=== PATIENT | female | born 1975 | race Asian ===

== ENCOUNTER 2017-05-17 12:28 | Emergency (ER) | payer MEDICAID ==
[~2017-05-17] VITALS: Ht 162.6 cm; Wt 61.2 kg
--- NOTE | 2017-05-17 13:23 | NUR ---
PATIENT'S NAME APPEARED IN THE SYSTEM AT 1323.
--- NOTE | 2017-05-17 13:36 | NUR ---
PT WALKED TO ROOM C/C LEFT HAND LACERATION AFTER TRYING TO OPEN A BOX WITH KNIFE. PT ALERT AND ORIENTED X 4 DENIES SI
[2017-05-17] MEDS ORDERED: LIDOCAINE 1%-EPI 1:100,000 20 ML VIAL ONE (13:43)
[2017-05-17] MEDS ORDERED: ACETAMINOPHEN ES 500 MG TABLET ONE (13:53)
[2017-05-17] MEDS ORDERED: TDAP [DIPH/PERTUSSIS/TET] 0.5 ML VIAL IM ONE ×2 (13:54→14:00)
[2017-05-17] MEDS ORDERED: ACETAMINOPHEN 325 MG TABLET PO ONE (14:00)
--- NOTE | 2017-05-17 14:16 | NUR ---
3 SUTURES NOTED. WOUND CARE DONE. PT D/C HOME IN STABLE CONDITION.
[2017-05-17 14:19] VITALS: BP 128/66
== END 2017-05-17 14:20 | disposition home or self-care (01) ==
LOC: ER 12:29
DX: S61.412A Laceration without foreign body of left hand, initial encounter (principal); W26.0XXA Contact with knife, initial encounter; Y93.89 Activity, other specified; Y92.89 Other specified places as the place of occurrence of the external cause; Y99.8 Other external cause status
CPT/HCPCS: 90715; A4606; A6402; A6403; J3490; Z7610

== ENCOUNTER 2017-05-24 11:20 | Emergency (ER) | payer MEDICAID ==
[~2017-05-24] VITALS: Ht 167.6 cm; Wt 63.5 kg
[2017-05-24 11:51] VITALS: BP 122/74
== END 2017-05-24 12:17 | disposition home or self-care (01) ==
LOC: ER 11:21
DX: S61.412D Laceration without foreign body of left hand, subsequent encounter (principal)
CPT/HCPCS: A4606; Z7502; Z7610

== ENCOUNTER 2023-02-12 08:57 | Emergency (ER) | payer MEDICAID ==
[~2023-02-12] VITALS: Ht 167.6 cm; Wt 68.0 kg
[2023-02-12 09:15] VITALS: BP 127/72; TEMP 98.9; O2SAT 100
[2023-02-12] MEDS ORDERED: IBUP-1955 PO (09:40)
[2023-02-12] MEDS ORDERED: AMOX-430 PO (09:40)
== END 2023-02-12 09:46 | disposition home or self-care (01) ==
LOC: ER 09:00
DX: K04.7 Periapical abscess without sinus (principal); R22.9 Localized swelling, mass and lump, unspecified

== ENCOUNTER 2023-10-26 11:19 | Emergency (ER) | payer MEDICAID ==
[~2023-10-26] VITALS: Ht 167.6 cm; Wt 64.9 kg
[~2023-10-26 11:19] MED LIST: AMOX-430 PO; IBUP-1955 PO
[2023-10-26] MEDS: IV NS 0.9% 500 ML BAG IV ONE (11:50)
[2023-10-26 11:53] LABS: PREGNANCY TEST URINE QUAL NEGATIVE (NEGATIVE)
[2023-10-26 11:54] LABS: APPEARANCE,URINE CLEAR (CLEAR); BILIRUBIN,URINE NEGATIVE (NEGATIVE); BLOOD, URINE TRACE-INTA Ery/uL (NEGATIVE); COLOR,URINE YELLOW (YELLOW); KETONES,URINE NEGATIVE (NEGATIVE); LEUKOCYTE ESTERASE ,URINE NEGATIVE (NEGATIVE); NITRITE, URINE NEGATIVE (NEGATIVE); PH,URINE 8.5 (5.0-8.0); PROTEIN,URINE 1+ mg/dl (NEGATIVE); UGLUCOSE NEGATIVE (NEGATIVE); UROBILINOGEN,URINE 0.2 EU/dL (0.2)
[2023-10-26] MEDS: KETOROLAC TROMETHAMINE 15 MG/ML VIAL IV ONE (12:00)
[2023-10-26 12:05] LABS: ADD URINE CULTURE NO; SQUAMOUS EPITHELIAL CELL,UR Few /HPF (None Seen)
[2023-10-26 12:06] LABS: BACTERIA,URINE Few /HPF (None Seen); HYALINE CASTS, URINE Few /LPF (None Seen)
[2023-10-26] MEDS ORDERED: KETOROLAC TROMETHAMINE 15 MG/ML VIAL ONE (12:17)
[2023-10-26 12:39] LABS: ALBUMIN 3.7 g/dL (3.4-5.0); BILIRUBIN,DIRECT 0.1 mg/dL (0.0-0.2); BILIRUBIN,TOTAL 0.5 mg/dL (0.2-1.0); CALCIUM, SERUM 8.8 mg/dL (8.5-10.1); CREATININE 0.6 mg/dL (0.6-1.3); POTASSIUM 3.9 mmol/L (3.5-5.1)
[2023-10-26] MEDS ORDERED: NAPR-1164 PO (13:29)
[2023-10-26 13:39] LABS: BASOPHILS % (AUTO) 0.7 % (0.0-2.0); EOSINOPHILS # (AUTO) 0.1 K/uL (0.0-0.7); EOSINOPHILS % (AUTO) 0.9 % (0.0-6.0); HEMATOCRIT 41 % (33-45); HEMOGLOBIN 13.5 g/dL (11.5-14.8); LYMPHOCYTES # (AUTO) 1.1 K/uL (0.8-4.8); MEAN CORPUSCULAR HEMOGLOBIN 28 PG (26.0-33.0); MEAN CORPUSCULAR HGB CONC 33 g/dl (31.0-36.0); MEAN CORPUSCULAR VOLUME 85 fL (82-100); MONOCYTES # (AUTO) 0.5 K/uL (0.1-1.30); MONOCYTES % (AUTO) 7.6 % (2.0-12.0); NEUTROPHILS # (AUTO) 4.6 K/uL (1.8-8.9); NEUTROPHILS % (AUTO) 72.8 % (43.0-81.0); PLATELET COUNT (AUTO) 212 K/uL (150-450); RED BLOOD CELL COUNT(AUTO) 4.81 MIL/uL (4.0-5.2); RED CELL DISTRIBUTION WIDTH 13.6 % (11.5-15.0); WHITE BLOOD COUNT (AUTO) 6.3 K/uL (4.3-11.0)
[2023-10-26 14:00] VITALS: BP 124/80; TEMP 98; O2SAT 99
== END 2023-10-26 14:00 | disposition home or self-care (01) ==
LOC: ER 11:32
DX: R10.32 Left lower quadrant pain (principal)
CPT/HCPCS: 99285; 74176; 96374; 76856; 85025; 80048; 83690; 80076; 84703; 81001; 36415; J7040; J1885; A4223